=== PATIENT | female | born 1990 | race Two or more races ===

== ENCOUNTER 2023-04-30 09:08 | Emergency (ER) | payer OTHER ==
[~2023-04-30] VITALS: Ht 157.5 cm; Wt 59.0 kg
[2023-04-30] MEDS ORDERED: TIROSINT13 MCG PO (09:13)
[2023-04-30 11:55] LABS: MEAN CELL VOLUME 89.6 fL (80.00-100.00); MEAN CORPUSCULAR HEMOGLOBIN 30.7 pg (27.00-32.0); MEAN CORPUSCULAR HGB CONC 34.3 g/dl (32.0-36.0); PLATELET COUNT 214 K/uL (150-450); RED BLOOD COUNT 4.24 M/uL (4.00-6.00); RED CELL DISTRIBUTION WIDTH 12.7 % (11.5-14.5)
== END 2023-04-30 14:28 ==
LOC: ER 09:09
PROVIDERS: General Practice
DX: J03.90 Acute tonsillitis, unspecified (principal); R50.9 Fever, unspecified; E03.8 Other specified hypothyroidism; Z20.822 Contact with and (suspected) exposure to COVID-19

== ENCOUNTER 2023-11-02 09:03 | Emergency (ER) | payer OTHER ==
[~2023-11-02] VITALS: Ht 157.5 cm; Wt 60.8 kg
[~2023-11-02 09:03] MED LIST: TIROSINT13 MCG PO
[2023-11-02] MEDS ORDERED: LEVOTHYROXINE25 MCG PO (09:06)
[2023-11-02] MEDS ORDERED: FOLIC ACID0.4 MG PO (09:06)
[2023-11-02] MEDS ORDERED: 0.9 % SODIUM CHLORIDE 500 ML IV ONE (09:30)
[2023-11-02] MEDS ORDERED: MEPERIDINE HCL/PF 50 MG/ML VIAL IM ONE (09:30)
[2023-11-02 10:16] LABS: HEMATOCRIT 42.6 % (36.0-45.00); HEMOGLOBIN 15.1 g/dL (12.0-15.00); MEAN CELL VOLUME 89.9 fL (80.00-100.00); MEAN CORPUSCULAR HEMOGLOBIN 31.8 pg (27.00-32.0); MEAN CORPUSCULAR HGB CONC 35.4 g/dl (32.0-36.0); PLATELET COUNT 198 K/uL (150-450); RED BLOOD COUNT 4.74 M/uL (4.00-6.00); RED CELL DISTRIBUTION WIDTH 13.4 % (11.5-14.5)
== END 2023-11-02 14:16 | disposition home or self-care (01) ==
LOC: ER 09:04
PROVIDERS: General Practice
DX: O20.8 Other hemorrhage in early pregnancy (principal); Z3A.09 9 weeks gestation of pregnancy; E03.8 Other specified hypothyroidism

== ENCOUNTER 2024-05-30 04:19 | Inpatient (IN) | payer OTHER ==
[~2024-05-30] VITALS: Ht 157.5 cm; Wt 71.2 kg
[2024-05-30] VITALS (9 sets, daily range): BP systolic 98–139; BP diastolic 52–86
[~2024-05-30 04:19] MED LIST changes: +FOLIC ACID0.4 MG PO; +LEVOTHYROXINE25 MCG PO
[2024-05-30] MEDS ORDERED: AMPICILLIN SODIUM 2,000 MG VIAL IV ONE (05:00)
[2024-05-30] MEDS ORDERED: RINGERS SOLUTION,LACTATED 1,000 ML IV SCH (05:00)
[2024-05-30] MEDS ORDERED: MORPHINE SULFATE 4 MG/ML CARTRIDGE IV PRN (05:00)
[2024-05-30] MEDS ORDERED: OXYTOCIN 500 ML IV SCH (05:00)
[2024-05-30] MEDS ORDERED: PRENATAL TABLE1 EAC1 PO (05:39)
[2024-05-30] MEDS ORDERED: SYNTHROID100 MCG PO (05:39)
[2024-05-30 06:58] LABS: HEMATOCRIT 38.3 % (36.0-45.00); HEMOGLOBIN 13.3 g/dL (12.0-15.00); MEAN CELL VOLUME 92.6 fL (80.00-100.00); MEAN CORPUSCULAR HEMOGLOBIN 32.1 pg (27.00-32.0); MEAN CORPUSCULAR HGB CONC 34.7 g/dl (32.0-36.0); PLATELET COUNT 154 K/uL (150-450); RED BLOOD COUNT 4.13 M/uL (4.00-6.00); RED CELL DISTRIBUTION WIDTH 14.9 % (11.5-14.5)
[2024-05-30 07:04] LABS: PH,URINE 6.5 (5.0-8.0); URINE APPEARANCE Clear; URINE BACTERIA 228.7 uL (0.0-1933); URINE BILIRRUBIN Negative (NEGATIVE); URINE BLOOD Negative; URINE COLOR Yellow; URINE EPITHELIAL CELLS 1.5 uL (0.0-38.8); URINE GLUCOSE Negative (NEGATIVE); URINE KETONE Negative (NEGATIVE); URINE LEUKOCYTE Negative; URINE NITRATE Negative; URINE PROTEIN Negative (NEGATIVE); URINE RBC 4.1 uL (0.0-20.8); URINE UROBILINOGEN 0.2 E.U./dl; URINE WBC 3.4 uL (0.0-23.2)
[2024-05-30 07:11] LABS: ALBUMIN 2.8 gm/dL (3.4-5.0); BILIRUBIN TOTAL 0.41 mg/dL (0.3-1.2); CALCIUM 9.4 mg/dL (8.5-10.1); CREATININE SERUM 0.56 mg/dL (0.55-1.02); GFR 126.26; GLOBULINA 3.5 G/DL (2.4-3.5); POTASSIUM 4.01 mEq/L (3.5-5.1); TOTAL PROTEIN 6.3 gm/dL (6.4-8.2)
[2024-05-30 07:12] LABS: URINE CAST 0.14 uL (0.0-1.40)
[2024-05-30 07:15] LABS: INR < 0.93; PARTIAL THROMBOPLASTIN TIME 22.5 SECONDS (22.0-34.0); PROTHROMBIN TIME 9.9 SECONDS (9.0-11.5)
[2024-05-30] MEDS ORDERED: OXYTOCIN 500 ML IV ONE (08:00)
[2024-05-30] MEDS ORDERED: OXYTOCIN 20 UNITS/500ML RL PIGGYBAG IV ONE (08:01)
[2024-05-30] MEDS ORDERED: AMPICILLIN SODIUM 1,000 MG VIAL IV SCH (09:00)
[2024-05-30] MEDS ORDERED: CHLORHEXIDINE GLUCONATE 120 ML BOTTLE TOP ONE (11:46)
[2024-05-30] MEDS ORDERED: ERYTHROMYCIN BASE OPHT 1GM EACH TUBE OP ONE ×2 (11:46→15:30)
[2024-05-30] MEDS ORDERED: OXYTOCIN 20 UNITS/1000ML RL PIGGYBAG IV ONE (11:46)
[2024-05-30] MEDS ORDERED: LIDOCAINE HCL 1% 10ML VIAL ONE (11:46)
[2024-05-30] MEDS ORDERED: CHLORHEXIDINE GLUCONATE 120 ML BOTTLE TOP SCH (14:30)
[2024-05-30] MEDS ORDERED: IBUprofen 400 MG TABLET PO PRN (14:30)
[2024-05-30] MEDS ORDERED: PNV,CALCIUM 72/IRON/FOLIC ACID 1 TAB TABLET PO SCH (14:31)
[2024-05-30] MEDS ORDERED: OXYTOCIN 1,000 ML IV ONE (14:45)
[2024-05-30] MEDS ORDERED: LIDOCAINE HCL 1% 10ML VIAL IJ ONE (15:45)
[2024-05-30] MEDS ORDERED: DOCUSATE SODIUM 100MG CAP PO SCH (17:00)
[2024-05-31] VITALS: BP 116/78
[2024-05-31 06:19] LABS: HEMATOCRIT 31.3 % (36.0-45.00); MEAN CELL VOLUME 93.4 fL (80.00-100.00); MEAN CORPUSCULAR HEMOGLOBIN 32.7 pg (27.00-32.0); RED BLOOD COUNT 3.36 M/uL (4.00-6.00); RED CELL DISTRIBUTION WIDTH 14.9 % (11.5-14.5)
[2024-05-31 06:38] LABS: PLATELET COUNT 129 K/uL (150-450)
[2024-05-31 08:41] VITALS: BP 119/76
[2024-05-31 16:36] VITALS: BP 124/77
[2024-05-31 21:14] VITALS: BP 117/79
[2024-06-01 01:31] VITALS: BP 115/78
[2024-06-01 07:32] VITALS: BP 120/81
== END 2024-06-01 13:31 | disposition home or self-care (01) | DRG 807 ==
LOC: LDR 04:19 → OB/GYN 15:36 → LDR 06-01 12:16 → OB/GYN 06-01 13:31
PROVIDERS: Obstetrics & Gynecology Gynecology; ADMIT Obstetrics & Gynecology; ATTEND Obstetrics & Gynecology
PROC: 10E0XZZ Delivery of Products of Conception, External Approach (ICD-10-PCS; principal; 2024-05-30)
PROC: 0UQG7ZZ Repair Vagina, Via Natural or Artificial Opening (ICD-10-PCS; 2024-05-30)
PROC: 4A1HXCZ Monitoring of Products of Conception, Cardiac Rate, External Approach (ICD-10-PCS; 2024-05-30)
DX: O71.4 Obstetric high vaginal laceration alone (principal); Z37.0 Single live birth; Z3A.39 39 weeks gestation of pregnancy; Z20.822 Contact with and (suspected) exposure to COVID-19